=== PATIENT | male | born 1955 | race Two or more races ===

== ENCOUNTER 2025-03-25 10:42 | Inpatient (IN) | payer MEDICARE, OTHER, MEDICAID ==
[~2025-03-25] VITALS: Ht 182.9 cm; Wt 85.3 kg
[2025-03-25 10:47] VITALS: O2SAT 99
[2025-03-25] MEDS: PIPERACILLIN/TAZO 3.375G/50ML 50 ML IV ONE (11:39)
[2025-03-25] MEDS: SODIUM CHLORIDE 0.9% (SEPSIS BOLUS) IV ONE (11:40)
[2025-03-25 11:41] LABS: BASOPHILS % 0.4 % (0.0-2.0); EOSINOPHILS % 1.1 % (0.0-5.0); HEMATOCRIT. 29.8 % (42.0-52.0); HEMOGLOBIN. 10.2 g/dL (14.0-18.0); MEAN CORPUSCULAR HEMOGLOBIN 32.1 pg (28.0-32.0); MEAN CORPUSCULAR HGB CONC 34.2 g/dL (31.0-37.0); MEAN CORPUSCULAR VOLUME 93.9 fL (80.0-94.0); MEAN PLATELET VOLUME 9.7 fl (7.4-10.4); MONOCYTES % 12.7 % (2.0-8.0); NEUTROPHILS % 66.8 % (40.0-76.0); PLATELET 189 x1000/uL (130-400); RED BLOOD CELL COUNT 3.17 mill/uL (4.7-6.1); RED CELL DISTRIBUTION WIDTH 19.1 % (11.6-14.6); WHITE BLOOD COUNT 10.8 x1000/uL (4.5-11.0)
[2025-03-25] MEDS: VANCOMYCIN 1G PREMIX 200 ML IV ONE (11:45)
[2025-03-25 11:51] LABS: CHLORIDE 109 mEq/L (98-107); SODIUM 139 mEq/L (136-145)
[2025-03-25 11:52] LABS: CALCIUM 8.2 mg/dL (8.7-10.4); CARBON DIOXIDE 20 mEq/L (21-32)
[2025-03-25 11:57] LABS: GLUCOSE 93 mg/dL (70-105); TROPONIN I HIGH SENSITIVITY 15 ng/L (3.0-53); UREA NITROGEN BLOOD 7 mg/dL (9-23)
[2025-03-25 11:59] LABS: ALANINE AMINOTRANSFERASE 31 IU/L (10-49); ALBUMIN 2.4 g/dL (3.2-4.8); ASPARTATE AMINOTRANSFERASE 140 IU/L (<34); BILIRUBIN DIRECT 2.8 mg/dL (<=3.0); BILIRUBIN TOTAL 6.6 mg/dL (0.1-1.0); PROTEIN TOTAL 7.3 g/dL (6.0-8.3)
[2025-03-25 12:25] LABS: LACTIC ACID 5.2 mmol/L (0.4-2.0)
[2025-03-25 13:04] LABS: INR 1.9; PROTHROMBIN TIME 18.8 sec (9.6-11.0)
[2025-03-25 13:25] LABS: CHLORIDE 115 mEq/L (98-107); SODIUM 143 mEq/L (136-145)
[2025-03-25 13:26] LABS: CARBON DIOXIDE 19 mEq/L (21-32)
[2025-03-25 13:27] LABS: CALCIUM 8.5 mg/dL (8.7-10.4)
[2025-03-25 13:31] LABS: GLUCOSE 101 mg/dL (70-105); UREA NITROGEN BLOOD < 5 mg/dL (9-23)
[2025-03-25 13:35] LABS: AMMONIA 136 uMol/L (<32)
[2025-03-25 14:45] LABS: CLARITY URINE CLEAR (CLEAR); COLOR URINE ORANGE (YELLOW); GLUCOSE URINE NEGATIVE (NEGATIVE); KETONES URINE TRACE (NEGATIVE); LEUKOCYTE ESTERASE URINE 1+ (NEGATIVE); NITRITE URINE POSITIVE (NEGATIVE); OCCULT BLOOD URINE 1+ (NEGATIVE); PH URINE 6.5 (4.5-8.0); PROTEIN URINE 1+ (NEGATIVE); SPECIFIC GRAVITY URINE 1.021 (1.005-1.030)
[2025-03-25] MEDS ORDERED: CLONIDINE 0.1MG TABLET PO PRN (15:00)
[2025-03-25] MEDS ORDERED: GUAIFENESIN 200MG/10ML SUGAR FREE UDC PO PRN (15:00)
[2025-03-25] MEDS ORDERED: DEXTROSE 50% WATER 50ML SYRINGE IV PRN (15:00)
[2025-03-25] MEDS ORDERED: DOCUSATE SODIUM 100MG CAPSULE PO PRN (15:00)
[2025-03-25] MEDS ORDERED: ACETAMINOPHEN 325MG TABLET PO PRN (15:00)
[2025-03-25] MEDS ORDERED: MAGNESIUM/ALUMINUM HYDROXIDE/SIMETHICONE 30ML UDC PO PRN (15:00)
[2025-03-25] MEDS ORDERED: IPRATROPIUM/ALBUTEROL 0.5-3(2.5)MG/3ML NEB HHN PRN (15:00)
[2025-03-25] MEDS ORDERED: ONDANSETRON HCL 4MG/2ML INJ IV PRN (15:00)
[2025-03-25 15:07] LABS: SQUAMOUS EPITHELIAL CELL URINE 1+ /lpf (RARE/1+)
[2025-03-25 15:08] LABS: BACTERIA URINE TRACE
[2025-03-25 15:09] LABS: WBC URINE 0-2 /hpf (0-2)
[2025-03-25] MEDS ORDERED: VANCOMYCIN 750MG PMX (XELLIA) 150 ML IV SCH (17:00)
[2025-03-25] MEDS: FUROSEMIDE 40MG/4ML VIAL IVP SCH (17:06)
[2025-03-25] MEDS: PANTOPRAZOLE SODIUM 40 MG/VIAL IV SCH (17:06)
[2025-03-25] MEDS: LACTULOSE 20G/30ML UDC PO SCH (17:06)
[2025-03-25 17:43] LABS: FOLIC ACID (FOLATE) SERUM 6.48 ng/mL (>5.38)
[2025-03-25 17:44] LABS: FERRITIN 1257 ng/mL (22-322); VITAMIN B12 SERUM 1398 pg/mL (211-911)
[2025-03-25] MEDS: BLOOD SUGAR DIAGNOSTIC STRIP TEST SCH (17:58)
[2025-03-25 17:59] LABS: IRON 89 ug/dL (65-175)
[2025-03-25 18:00] VITALS: BP 131/81; PULSE 99; RESP 14; TEMP 37; O2SAT 98
[2025-03-25 18:02] LABS: PHOSPHORUS 2.4 mg/dL (2.5-4.9)
[2025-03-25 18:09] VITALS: BP 130/81; PULSE 99; RESP 14; TEMP 36.9
[2025-03-25 18:13] LABS: TOTAL IRON BINDING CAPACITY < 40 ug/dl (250-425)
[2025-03-25 18:40] LABS: HEPATITIS B CORE AB IGM NEGATIVE (Negative); HEPATITIS C AB NON REACTIVE (Neg) (Negative)
[2025-03-25 20:00] VITALS: BP 158/115; PULSE 102; RESP 17; TEMP 36.8; O2SAT 98
[2025-03-25] MEDS: KCL 20MEQ/100ML PREMIX 100 ML IV SCH (20:29)
[2025-03-25] MEDS: SPIRONOLACTONE 25MG TABLET PO SCH (21:54)
[2025-03-25] MEDS: LACTULOSE ENEMA 1,000ML BOTTLE PR SCH (21:56)
[2025-03-25] MEDS: PIPERACILLIN/TAZO 3.375G/50ML 50 ML IV SCH (22:27)
[2025-03-25] MEDS: PHYTONADIONE 10 MG in DEXTROSE 5% WATER 49 ML IV SCH (23:12)
[2025-03-26] VITALS (9 sets, daily range): BP systolic 103–135; BP diastolic 72–89; PULSE 98–118; RESP 10–22; TEMP 36.3–36.9; O2SAT 95–99
[2025-03-26 00:44] LABS: TROPONIN I HIGH SENSITIVITY 15 ng/L (3.0-53)
[2025-03-26 00:45] LABS: CREATINE KINASE 158 IU/L (46-171)
[2025-03-26] MEDS ORDERED: VANCOMYCIN 1GM PMX (XELLIA) 200 ML IV SCH (06:00)
[2025-03-26 06:51] LABS: *AMPHETAMINES SCREEN URINE NEGATIVE (NEGATIVE); *BARBITURATES SCREEN URINE NEGATIVE (NEGATIVE); *BENZODIAZEPINES SCREEN URINE NEGATIVE (NEGATIVE); *COCAINE SCREEN URINE NEGATIVE (NEGATIVE); CANNABINOID URINE SCREEN NEGATIVE (NEGATIVE); ECSTASY MDMA SCREEN URINE NEGATIVE (NEGATIVE); METHADONE URINE SCREEN NEGATIVE (NEGATIVE); OPIATES URINE SCREEN NEGATIVE (NEGATIVE); PHENCYCLIDINE URINE SCREEN NEGATIVE (NEGATIVE)
[2025-03-26 06:54] LABS: BASOPHILS % 0.5 % (0.0-2.0); EOSINOPHILS % 0.5 % (0.0-5.0); HEMATOCRIT. 30.3 % (42.0-52.0); LYMPHOCYTES % 16.4 % (20.0-50.0); MEAN CORPUSCULAR HEMOGLOBIN 31.7 pg (28.0-32.0); MEAN CORPUSCULAR HGB CONC 32.8 g/dL (31.0-37.0); MEAN CORPUSCULAR VOLUME 96.6 fL (80.0-94.0); MONOCYTES % 11.7 % (2.0-8.0); NEUTROPHILS % 70.9 % (40.0-76.0); PLATELET 136 x1000/uL (130-400); RED BLOOD CELL COUNT 3.14 mill/uL (4.7-6.1); RED CELL DISTRIBUTION WIDTH 19.8 % (11.6-14.6); WHITE BLOOD COUNT 11.1 x1000/uL (4.5-11.0)
[2025-03-26 07:16] LABS: CARBON DIOXIDE 18 mEq/L (21-32); CHLORIDE 113 mEq/L (98-107); POTASSIUM 3.4 mEq/L (3.5-5.1); SODIUM 145 mEq/L (136-145)
[2025-03-26 07:17] LABS: CALCIUM 8.3 mg/dL (8.7-10.4); T4 FREE 1.04 ng/dL (0.89-1.76)
[2025-03-26 07:18] LABS: THYROID STIMULATING HORMONE 1.46 uIU/mL (0.55-4.78)
[2025-03-26 07:21] LABS: GLUCOSE 65 mg/dL (70-105); TROPONIN I HIGH SENSITIVITY 16 ng/L (3.0-53)
[2025-03-26 07:22] LABS: TRIGLYCERIDE 89 mg/dL (0-150); UREA NITROGEN BLOOD 6 mg/dL (9-23)
[2025-03-26 07:23] LABS: LDL CHOLESTEROL 36 mg/dL (5-100)
[2025-03-26 07:24] LABS: BILIRUBIN TOTAL 5.3 mg/dL (0.1-1.0); CHOLESTEROL 73 mg/dL (<200); CREATINE KINASE 186 IU/L (46-171); HDL CHOLESTEROL < 20 mg/dL (>55)
[2025-03-26] MEDS: FUROSEMIDE 40MG/4ML VIAL IVP SCH (09:05)
[2025-03-26 11:12] LABS: BILIRUBIN DIRECT 2.8 mg/dL (<=3.0); BILIRUBIN TOTAL 5.3 mg/dL (0.1-1.0)
[2025-03-26 11:17] LABS: LACTIC ACID 4.3 mmol/L (0.4-2.0)
[2025-03-26 11:18] LABS: PREALBUMIN < 5.0 mg/dl (10.0-40.0)
[2025-03-26] MEDS: PIPERACILLIN/TAZO 3.375G/50ML 50 ML IV SCH (14:18)
[2025-03-26 18:34] LABS: INR 1.9; PARTIAL THROMBOPLASTIN TIME 33.3 sec (23.4-31.0); PROTHROMBIN TIME 19.3 sec (9.6-11.0)
[2025-03-26] MEDS: RIFAXIMIN 550 MG TABLET PO SCH (21:19)
[2025-03-26] MEDS ORDERED: DEXT 5%/0.45% NACL 1000ML 1,000 ML IV SCH (21:30)
[2025-03-27] MEDS ORDERED: PHYTONADIONE 10MG/ML INJ SUBCUT SCH (09:00)
[2025-03-27] MEDS ORDERED: FAMOTIDINE 20MG/2ML VIAL IV SCH (09:00)
[2025-03-29 11:30] LABS: ETHANOL URINE Negative % (Cutoff=0.020)
== END 2025-03-26 21:50 | disposition short-term general hospital (02) | DRG 871 ==
LOC: ER 10:42 → 5EST 12:40 → EDBEDREQSVC 13:04 → EDBEDREQ 13:04 → EDBEDREQTM 13:04 → ENRESERV 13:41
PROVIDERS: ADMIT Hospitalist; ATTEND Hospitalist
DX: A41.9 Sepsis, unspecified organism (principal); G92.8 Other toxic encephalopathy; R65.21 Severe sepsis with septic shock; D68.9 Coagulation defect, unspecified; E87.20 Acidosis, unspecified; N39.0 Urinary tract infection, site not specified; F10.20 Alcohol dependence, uncomplicated; I10 Essential (primary) hypertension; E87.5 Hyperkalemia; K74.60 Unspecified cirrhosis of liver; K70.11 Alcoholic hepatitis with ascites; E87.6 Hypokalemia; D64.9 Anemia, unspecified; E88.09 Other disorders of plasma-protein metabolism, not elsewhere classified; Z66 Do not resuscitate; Z86.73 Personal history of transient ischemic attack (TIA), and cerebral infarction without residual deficits; Z85.46 Personal history of malignant neoplasm of prostate; Z78.1 Physical restraint status
CPT/HCPCS: 36415; 71045; 73030; 76700; 76705; 80048; 80061; 80076; 80305; 80320; 81003; 82105; 82140; 82247; 82248; 82550; 82607; 82728; 82746; 82962; 83036; 83540; 83550; 83605; 83735; 84100; 84134; 84145; 84439; 84443; 84484; 85025; 86705; 93005; 93970; 96365; 96366; 96368; 97166; 99291; A4606; J1940; J2470; J2543; J3370; J3430; J3480; J7030; J7060